=== PATIENT | female | born 1960 | race Caucasian/White ===

== ENCOUNTER → 2023-02-02 | Outpatient (CLI) | payer BC ==
[~2023-02-02] MED LIST: ASP81CT PO; CATHETER FLUSH 10 ML SYR IVP PRN; HYDR-91 PO; LOSA50TA6 PO; NITR-65 PO
[2023-02-02 08:58] VITALS: BP 155/106
--- NOTE | 2023-02-02 11:56 | Cardiology Stress Test Report ---
Stress Test Report Date of Procedure/Referring: Date of Procedure: Feb 02, 2023 PCP Tevin Anderson MD Admitting Physician Admitting Physician: Attending Physician: Netta Pulido Baseline Heart Rate: 62 Baseline Blood Pressure: Blood Pressure Systolic: 155 Blood Pressure Diastolic: 106 Vital Signs Date Time Temp Pulse Resp B/P (MAP) Pulse Ox O2 Delivery O2 Flow Rate FiO2 02/02/23 08:58 62 155/106 (122) 99 Room Air Baseline Vital Signs Vital Signs Date Time Temp Pulse Resp B/P (MAP) Pulse Ox O2 Delivery O2 Flow Rate FiO2 02/02/23 08:58 62 155/106 (122) 99 Room Air Baseline EKG: Baseline EKG: NSR Summary: After explaining the procedure and details to the patient, she signed the cons ent and was brought to the stress nuclear laboratory. Patient exercised on standard Sam protocol, EKG, heart rate and blood pressure were monitored continuously, resting and stress doses of radio tracer were injected, imaging was acquired and reviewed in the short axis, horizontal long axis and vertical long axis views Patient was able to exercise for a total of 5 minutes on Sam protocol, METs 7 Maximum heart rate 142 Maximum blood pressure 207/110 Stress EKG, Minimal nondiagnostic changes Recovery EKG, Return to baseline TID: 1.13 SSS: 0 SDS: 0 EF: 68 Conclusion: Good exercise tolerance for a total of 5 minutes on standard Sam protocol, 7 METS achieving 90% of maximal expected heart rate Appropriate heart rate response to exercise with hypertensive response to exercise with peak blood pressure 207/110 return to baseline during recovery Nondiagnostic EKG changes with exercise return to baseline during recovery No ischemia or infarction noted on SPECT images Normal left ventricular size, ejection fraction 68% Copy Copies To 1: TEVIN ANDERSON MD, BASHAR J MD Feb 02, 2023 11:56
== END ==
LOC: CARD 08:15
PROVIDERS: ATTEND Physician Assistant
DX: R06.09 Other forms of dyspnea (principal)
CPT/HCPCS: 78452; 93017; A9502